=== PATIENT | male | born 1995 | race Asian ===

== ENCOUNTER 2018-06-09 19:33 | Emergency (ER) | payer OTHER, SELFPAY ==
[2018-06-09 19:37] VITALS: BP 124/82; PULSE 72; RESP 18; TEMP 36.4; O2SAT 99; BMI 20.6
--- NOTE | 2018-06-09 22:33 | ED.DCSUM_ITS ---
- ER Visit Summary Date of Service: 06/09/18 Chief Complaint: Anxiety and panic attacks History of Present Illness: The patient is a 23 M who presents due to increasing frequency of panic attacks. He has a history of major depressive disorder and posttraumatic stress disorder. He states he had a stressful event a couple of weeks ago and that I am in a crisis right now. He states that when the event initially occurred he has some suicidal thoughts but he has seen the wellness center about this had no specific plan and denies feeling suicidal now. He does not feel he is a risk to himself. He has no homicidal or violent thoughts directed at anyone else. He is on an SSRI and the dosage was recently increased. He complains of feeling anxious and fearful that he is going to have a panic attack and frustrated by this. He complains of nausea and decreased oral intake related to his anxiety. Otherwise no recent illness such as fevers vomiting chest pain shortness of breath. Physical Examination: Afebrile vitals are normal Moist mucous membranes Patient does appear anxious Heart regular rate and rhythm Lungs clear Abdomen soft Alert Test Results: Not indicated Emergency Department Course and Treatment: I advised that the patient follow-up with the counseling center. He already sees a counselor frequently once or twice a week. He is not suicidal or homicidal. He does show insight into his condition and is able to care for himself and does see a counselor. I do not feel he meets criteria for involuntary psychiatric hospitalization. He was given a prescription for Vistaril. Patient was discharged. Treatment Plan: [] Disposition: Discharge Impression: Panic attacks This note was generated with [employer] dictation software. It may contain incorrect words, spelling, and punctuation that were not noted in review of the chart prior to signing ED Disposition - Plan for ED Patient: Chief Complaint: Mental Health Referrals: Care Physician,No Primary [Primary Care Provider] -
--- NOTE | 2018-06-09 22:33 | ED.DEP ---
ED Disposition - Plan for ED Patient: Chief Complaint: Mental Health Instructions: ED Panic Attack Prescriptions: Ondansetron [Zofran Odt] 4 mg PO Q8H PRN PRN #10 tab PRN Reason: Nausea hydrOXYzine pamoate capsule [Vistaril] 50 mg PO TID PRN PRN #30 cap PRN Reason: Anxiety Referrals: Care Physician,No Primary [Primary Care Provider] -
[2018-06-09] MEDS: hydrOXYzine PAM 25 MG Capsule PO (22:38)
[2018-06-09 22:42] VITALS: RESP 18
== END 2018-06-09 22:42 | disposition home or self-care (01) ==
PROVIDERS: Emergency Provider Emergency Medicine
DX: F41.0 Panic disorder [episodic paroxysmal anxiety] (principal); F32.9 Major depressive disorder, single episode, unspecified; F43.10 Post-traumatic stress disorder, unspecified; Z79.899 Other long term (current) drug therapy; Z72.0 Tobacco use
CPT/HCPCS: 99283

== ENCOUNTER 2018-10-13 02:24 | Inpatient (IN) | payer OTHER, SELFPAY ==
[2018-10-13] VITALS (39 sets, daily range): BP systolic 97–152; BP diastolic 39–96; PULSE 49–102; RESP 12–18; TEMP 36.2–38.3; O2SAT 56–771; BMI 19.2; BMI 19.3
[2018-10-13 02:50] LABS: Absolute Lymphocyte Count 1.82 X10^3/ul (0.83-4.51); Absolute Neutrophil Count 6.2 X10^3/uL (2.0-7.7); Basophil# 0.02 X10^3/uL; Basophil% 0.2 % (0-1); Eosinophil# 0.07 X10^3/uL; Eosinophils% 0.8 % (0-5); Hematocrit 43.7 % (40-54); Hemoglobin 15.3 g/dl (13.0-16.5); Lymphocyte # 1.82 X10^3/ul (4.0); Lymphocyte % 21.2 % (19-41); Mean Corpuscular Hgb 31.4 pg (27.0-32.0); Mean Corpuscular Volume 89.7 fL (80-94); Mean Platelet Vol. 10.4 fl (6.2-12.0); Monocyte# 0.47 X10^3/uL; Monocyte% 5.5 % (0-10); Neutrophil # 6.18 X10^3/uL (2.7-7.7); Neutrophil % 72.1 % (47-70); Platelet Count 301 K/mm3 (150-450); RBC Distribution Width CV 12.1 % (11.6-14.6); RBC Distribution Width SD 39.3 fl (35.1-43.9); Red Blood Count 4.87 M/mm3 (4.6-6.2); White Blood Count 8.6 K/mm3 (4.4-11.0)
[2018-10-13] MEDS: Etomidate 20 MG/10 ML Vial IV (02:50)
[2018-10-13 02:51] LABS: POSITIVE COUNT NO; POSITIVE DIFFERENTIAL NO; POSITIVE MORPHOLOGY NO
[2018-10-13] MEDS: Succinylcholine Chloride 200 MG/10 ML Vial 100 MG IV (02:51)
--- NOTE | 2018-10-13 02:56 | ED.VISSUMM ---
- ER Visit Summary Date of Service: 10/13/18 Chief Complaint: Reportedly attempted suicide by overdose and carbon monoxide poisoning History of Present Illness: The patient is a 23 M we have no significant past medical or surgical history. The patient is completely unresponsive and is unable to give me any history. Per the paramedics and police reportedly was suicidal and overdosed on 3 packages of Benadryl I am unsure the amount or the strength. Also was found unresponsive in a car with exhaust coming from the tailpipe and a tube running the exhaust into the car. Reportedly was only in the car 15 minutes or so. Patient is unable to give me any history. There is no family available for history. 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 Physical Examination: Unresponsive young male. Initial vital signs 137/96 pulse ox 100%. He only moans. He has no purposeful movement except to noxious stimuli he tries to withdrawal. He does not follow any commands. He is currently not speaking. His eyes are closed. HEENT exam eyes closed. When open his pupils are about 3 mm. Moist mucous membranes. No signs of trauma to his face or head. Neck nontender. Trachea midline. No signs of ligature. Lungs clear to auscultation bilaterally. Heart regular rhythm rate about 95 no murmur. Chest wall nontender. No signs of trauma. Abdomen soft and nontender. Extremities are unremarkable. He is shivering. Neurologically his eyes are closed. He is moaning minimally. And tries to withdraw from noxious stimuli. No other movements. Does not follow commands. Test Results: Portable chest x-ray shows normal cardiac silhouette intubated. It was in the proximal trachea and was advanced 2 cm. CBC showed a white count 8. Hemoglobin 15. Chemistries normal with a gap of 7 and creatinine of 1.9. Liver enzymes are normal. Tox screen negative. Alcohol pending. Salicylates are less than 1.7. Tylenol is less than 2. Carbon monoxide level was 3.0 which would be a limited exposure. Emergency Department Course and Treatment: Patient with very decreased mental status after overdose and carbon monoxide exposure. He was emergently intubated. The entire time his sats stayed in the high 95 % or better. 7-1/2 ET tube at 22-1/2 at the lips. Bilateral breath sounds were heard. Good color change. Treatment Plan: Treated with IV fluids. He will be admitted to the ICU. I have the hospitalist on page. I did speak to a member of the college staff who was in the patient's room. She states they have been working with him recently due to depression. He is from a local high school and has a sponsor family here but his biological family lives in [place] and does not speak Austrian. They are working to get a hold of them. Disposition: Admission Impression: Acute suicide attempt by Benadryl overdose and carbon monoxide exposure Depression ET intubation Critical care time 35 minutes This note was generated with [employer] software. It may contain incorrect words, spelling, and punctuation that were not noted in review of the chart prior to signing ED Disposition - Plan for ED Patient: Referrals: NOT,DEFINED [NON-STAFF] -
[2018-10-13] MEDS: Propofol 10MG/Ml 1,000 MG/100 ML Bottle 3.702 MG CONT INF ×3 (03:00→10:53)
--- NOTE | 2018-10-13 03:08 | PCM.PN.BLA ---
Progress Note Indication: Impending respiratory failure Performed by: Dr. Hay Ng The patient was on mask with oxygen saturation 100%. RSI was done using Etomidate 20 mg. Glidescope was attempted. However patient had rigidity of jaw for which reason succinylcholine 100 mg was administered. Patient continued to have rigid jaw and intubation was difficult. Additional succinylcholine 100 mg was given at different IV site after which patient's jaw was more relaxed. Glidescope was reinserted into the oropharynx.. There was a Grade 1 view of the vocal cords. A 7.5-armenian endotracheal tube was inserted and visualized going through the vocal cords. The stylette was removed and cuff was inflated. Colorimetric change was visualized on the CO2 detector. Breath sounds were heard equally in both lung minaya. The endotracheal tube was placed at 21.5 cm, measured at the lips. A STAT chest x-ray was ordered to verify endotracheal tube placement. The patient tolerated the procedure well and there were no immediate complications. Because chest x-ray showed the endotracheal tube at T1-T2 disc and radiologist recommended advancing the tube by 4 cm emergency department doctor reportedly advanced the tube appropriately. Code Visit Procedures: 52174 Insert Emergency Airway
[2018-10-13] MEDS: 0.9% Normal Saline 1,000 ML 999 ML IV (03:11)
[2018-10-13 03:12] LABS: ALB/GLOB Ratio 1.2 RATIO (0.9-2.4); AST(SGOT) 16 U/L (15-37); Alanine Aminotransfer ALT/SGPT 14 U/L (16-61); Albumin, Serum 4.7 g/dL (3.2-5.0); Alkaline Phosphatase 83 U/L (45-117); Anion Gap 7 (5-15); BUN 6 mg/dL (7-18); BUN/Creat Ratio 6.4 RATIO (10-20); Calcium,Total 8.9 mg/dL (8.5-10.1); Chloride 103 mmol/L (98-107); Creatinine, Serum 0.94 mg/dL (0.70-1.30); EST Glomerular Filtration Rate 107 mL/min (>60); Est Glom Filt Rate - Afr Amer 129 mL/min (>60); Estimated Creatinine Clearance 108.49 ml/min; Globulin 3.8 g/dL (2.2-4.2); Glucose 133 mg/dL (74-106); Potassium 3.6 mmol/L (3.5-5.1); Protein, Total 8.5 g/dL (6.4-8.2); Sodium Level 138 mmol/L (136-145)
--- NOTE | 2018-10-13 03:21 | RAD_ITS ---
HISTORY: et tube placement and og placement EXAM/TECHNIQUE: XR Chest 1 View: COMPARISON: None. FINDINGS: # of images incl. paperwork: 1 Endotracheal tube tip at the level of the T1-2 disc, suggest advancing 4 cm and reimaging. Enteric tube extends into the stomach and off the film. No evidence of pneumothorax, pleural effusion, pneumonia, or pulmonary edema. RAD/Chest 1 View (Portable) IMPRESSION: Endotracheal tube tip at the level of the T1-2 disc, suggest advancing 4 cm and reimaging. at 0402 Reported and signed by: Reno García MD Electronically Signed: Reno García, at 4:00 EDT Tel , Service support ,
[2018-10-13] MEDS: LORazepam 2 MG/ML Syringe IV ×2 (03:30→04:50)
[2018-10-13 03:36] LABS: Salicylate < 1.7 mg/dL (2.8-20.0)
[2018-10-13 03:50] LABS: Acetaminophen (Tylenol) Level < 2.0 ug/mL (10.0-30.0)
[2018-10-13 03:54] LABS: Amphetamine Urine VISTA NEGATIVE (<1000 ng/mL); Barbiturate Urine VISTA NEGATIVE (< 200 ng/mL); Benzodiazepine Urine VISTA NEGATIVE (< 200 ng/mL); Cocaine Urine VISTA NEGATIVE (< 300 ng/mL); Ecstacy Urine VISTA NEGATIVE (< 500 ng/mL); Methadone Urine VISTA NEGATIVE (< 300 ng/mL); PCP Urine VISTA NEGATIVE (< 25 ng/mL); THC Urine VISTA NEGATIVE (< 50 ng/mL); Vista UDS pH Range 7
--- NOTE | 2018-10-13 05:11 | NURSING ---
[facility] [phone] CHLOE MAR
--- NOTE | 2018-10-13 05:18 | EKG12_ITS ---
Test Reason : OVERDOSE Blood Pressure : / mmHG Vent. Rate : 070 BPM Atrial Rate : 070 BPM P-R Int : 140 ms QRS Dur : 098 ms QT Int : 392 ms P-R-T Axes : 064 085 055 degrees QTc Int : 423 ms Normal sinus rhythm with sinus arrhythmia Normal ECG Confirmed by MANOHAR FAN, JULIANNA ([id number]), newspaper copy editor BENNY BASURTO ([id number]) on 10/15/2018 1:12:18 PM Referred By: FAUSTO Confirmed By:JULIANNA VILLELA MD
--- NOTE | 2018-10-13 05:53 | HP.PCM_ITS ---
Problem List (1) Depression Status: Chronic History of Present Illness Date of Admission: 10/13/18 Chief Complaint: suicidal attempt Patient was taken from emergency department doctor and a tennille at [facility] since patient is obtunded and could not provide history. 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 Patient took multiple boxes of Benadryl and connected tube from the exhaust of a running vehicle into the inside of the medical in an attempt to poison himself by carbon monoxide. At the emergency department because of impending respiratory failure and low [place] Coma Score patient was intubated. Subsequently he was started on pr opofol drip. His carbon monoxide on VBG was 3. Past Medical History Past Medical History (Chronic Problems): Chronic Problems (Last Updated 10/13/18 @ 06:25 by Hay Ng MD) Depression (Chronic) Medical History: Medical History (Last Updated 10/13/18 @ 06:25 by Hay Ng MD) Depression F32.9 Allergies No Known Allergies Allergy (Verified 10/13/18 02:37) Home Medications: Ambulatory Orders Medication Instructions Recorded Citalopram [Celexa] 20 mg PO DAILY 10/13/18 hydrOXYzine pamoate capsule 1 - 2 tab PO Q6H PRN PRN 10/13/18 [Vistaril pamoate capsule] Surgical History: - - Unable to obtain since patient was obtunded Smoking Status: Unknown if ever smoked Tobacco Use: - - Unable to obtain since patient is obtunded - *Family History Maternal History Items: - - Unable to obtain since patient is obtunded Paternal History Items: - - Unable to obtain since patient is obtunded Review of Systems Unable to obtain accurate/complete ROS d/t: Patient is obtunded VTE Information - Inpt Only VTE Present on Admission: No VTE Mechan Device Prophylaxis: None VTE Pharm Prophylaxis ordered?: Yes - Physical Exam General: - - Obtunded HEENT: Atraumatic, Normocephalic Neck: Supple, No JVD, Negative Carotid Bruits Lungs: Clear to auscultation, Normal air movement Cardiovascular: Regular rate, No murmurs Abdomen: Bowel Sounds Present, Soft, Non Tender Extremities: No edema, Capillary Refill Less than 3 Seconds Skin: No rashes, No breakdown Musculoskeletal: No Muscle Wasting Neurological: - - Obtunded. Patient noted to be shivering at the emergency department. Psych/Mental Status: - - Obtunded Vital Signs Temp Pulse Resp BP Pulse Ox 98.0 F 67 14 135/91 H 99 10/13/18 02:25 10/13/18 05:29 10/13/18 05:29 10/13/18 05:29 10/13/18 05:29 Oxygen Flow Rate (L/min) 15 Oxygen Delivery Method Mechanical Ventilator Weight: 61.7 kg Body Mass Index (BMI) 20.0 Laboratory Tests Past 24 Hrs 10/13/18 10/13/18 10/13/18 02:32 02:32 02:32 WBC 8.6 RBC 4.87 Hgb 15.3 Hct 43.7 MCV 89.7 MCH 31.4 MCHC 35.0 RDW 12.1 RDW Differential 39.3 Plt Count 301 MPV 10.4 Immature Gran % (Auto) 0.200 Neut % (Auto) 72.1 H Lymph % (Auto) 21.2 Winn % (Auto) 5.5 Eos % (Auto) 0.8 Baso % (Auto) 0.2 Absolute Neuts (auto) 6.2 Absolute Lymphs (auto) 1.82 Total Counted Not Reportable VBG Carboxyhemoglobin Sodium 138 Potassium 3.6 Chloride 103 Carbon Dioxide 28.0 Anion Gap 7 BUN 6 L Creatinine 0.94 Estim Creat Clear Calc 108.49 Est GFR (MDRD) Af Amer 129 Est GFR (MDRD) Non-Af 107 BUN/Creatinine Ratio 6.4 L Glucose 133 H Calcium 8.9 Total Bilirubin 1.10 H AST 16 ALT 14 L Alkaline Phosphatase 83 Total Protein 8.5 H Albumin 4.7 Globulin 3.8 Albumin/Globulin Ratio 1.2 Salicylates Urine Opiates Screen Urine Methadone Screen Acetaminophen < 2.0 L Ur Barbiturates Screen Ur Phencyclidine Scrn Ur Amphetamines Screen U Methamphetamin-MDMA U Benzodiazepines Scrn Urine Cocaine Screen U Cannabinoids Screen Ur Drug Screen Comment 10/13/18 10/13/18 10/13/18 02:32 03:33 04:45 WBC RBC Hgb Hct MCV MCH MCHC RDW RDW Differential Plt Count MPV Immature Gran % (Auto) Neut % (Auto) Lymph % (Auto) Winn % (Auto) Eos % (Auto) Baso % (Auto) Absolute Neuts (auto) Absolute Lymphs (auto) Total Counted VBG Carboxyhemoglobin 3.0 H Sodium Potassium Chloride Carbon Dioxide Anion Gap BUN Creatinine Estim Creat Clear Calc Est GFR (MDRD) Af Amer Est GFR (MDRD) Non-Af BUN/Creatinine Ratio Glucose Calcium Total Bilirubin AST ALT Alkaline Phosphatase Total Protein Albumin Globulin Albumin/Globulin Ratio Salicylates < 1.7 L Urine Opiates Screen NEGATIVE Urine Methadone Screen NEGATIVE Acetaminophen Ur Barbiturates Screen NEGATIVE Ur Phencyclidine Scrn NEGATIVE Ur Amphetamines Screen NEGATIVE U Methamphetamin-MDMA NEGATIVE U Benzodiazepines Scrn NEGATIVE Urine Cocaine Screen NEGATIVE U Cannabinoids Screen NEGATIVE Ur Drug Screen Comment Assessment/Plan The patient is a 23 year old M with a significant history of depression and who sees psychiatry and psychologist in the community; and originally 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 Acute toxic metabolic encephalopathy Likely his history of depression pushed him into the suicidal attempts. Likely from Benadryl as his CO level is only mildly elevated at 3.0. Salicylate level is unremarkable; acetaminophen level is unremarkable; urine dr ug screen is unremarkable. Patient was emergently intubated because of low [place] Coma Score. We will check ABG to adjust vent settings if necessary. Was started on propofol drip; continue. OG tube was placed in the emergency department. Trench Pipe Layer consult. Consider notifying patient's psychologist and psychiatrist when patient is medically stable. Maintenance IV infusion with lactated Ringer's. Hydration with water by OG tube. Trend CBC and BMP Trend CPK and a triglyceride in the setting of propofol use. PT and OT to work with patient while intubated. Depression Citalopram on hold since patient is intubated. Probable anxiety disorder Home medications include Vistaril. Vistaril on hold since patient is intubated and sedated. Stress ulcer prophylaxis Pepcid by GT DVT prophylaxis Subcutaneous Lovenox Code Visit Inpatient E&M: 31187 Init Hosp L3
--- NOTE | 2018-10-13 06:49 | NURSING ---
ICU 1 DR CLEMONS ACUTE TOXIC ENCEPHALOPATHY
--- NOTE | 2018-10-13 06:58 | RAD_ITS ---
HISTORY: confirm og placement. hx OD EXAM/TECHNIQUE: XR Abdomen 1 View: COMPARISON: None. FINDINGS: # of images incl. paperwork: 1 Enteric tube tip in the mid stomach directed inferiorly in the left upper abdomen. No apparent free air or obstruction. RAD/Abdomen Single View (Portable) IMPRESSION: Enteric tube tip in the mid stomach. at 0030 Reported and signed by: Reno García MD Electronically Signed: Reno García, at 0:28 EDT Tel , Service support ,
--- NOTE | 2018-10-13 07:10 | PCM.CON.CC ---
Capacity - Capacity Assessment Tool Can the patient make a choice & communicate that choice?: No Can the patient understand benefits, risks and alternatives?: No Can the patient make a logical, rational choice?: No Is there an impending, emergent risk to the patient?: Yes Does the patient have an Advance Directive?: No Is there a Surrogate Available?: No Reason for Consult Date of Consultation: 10/13/18 Reason for Consultation: Acute respiratory failure History of Present Illness: The patient is a 23-year-old male, with a history as outlined below, who presented to the emergency department on October 13 in an unresponsive state, following a reported suicide attempt. History pertinent to the patient's hospitalization was obtained primarily via chart review, as the patient is currently intubated and there is no family available at the bedside. The patient is currently residing with a local sponsor family while he attends school at the [employer], as he is normally a resident of [place] and does not speak any Indonesian. The patient reportedly took an unknown number of Benadryl tablets and then placed a tube connecting the exhaust of his vehicle to the interior portion of the automobile. Per documentation, the patient was only in the automobile with the exhaust fumes for approximately 15 minutes or so. On presentation to the emergency department, the patient was noted to be afebrile and hemodynamically stable. Initial laboratory evaluation revealed no evidence of a leukocytosis. Carboxyhemoglobin was noted to be 3.0. Chemistry profile was largely unremarkable. Toxicology screen was negative. On arrival to the ED, the patient was emergently intubated, as he was noted to be nonresponsive. The patient's initial carboxyhemoglobin level was noted only to be 3%. The patient was subsequently transferred to the medical intensive care unit for ongoing management. Past Medical History Past Medical History (Chronic Problems): Chronic Problems (Last Updated 10/13/18 @ 06:25 by Hay Ng MD) Depression (Chronic) Medical History: Medical History (Last Updated 10/13/18 @ 06:25 by Hay Ng MD) Depression F32.9 Allergies No Known Allergies Allergy (Verified 10/13/18 02:37) Home Medications: Ambulatory Orders Medication Instructions Recorded Citalopram [Celexa] 20 mg PO DAILY 10/13/18 hydrOXYzine pamoate capsule 1 - 2 tab PO Q6H PRN PRN 10/13/18 [Vistaril pamoate capsule] Surgical History: - - Unable to obtain since patient was obtunded Smoking Status: Unknown if ever smoked Tobacco Use: - - Unable to obtain since patient is obtunded - *Family History Maternal History Items: - - Unable to obtain since patient is obtunded Paternal History Items: - - Unable to obtain since patient is obtunded Review of Systems Unable to obtain accurate/complete ROS d/t: Due to current intubation and mechanical ventilation status. Objective: The patient's most recent lab work, culture data and imaging studies have all been personally reviewed. - Physical Exam General: - - Intubated, sedated and mechanically ventilated. No ventilator dyssynchrony noted. HEENT: Atraumatic, PERRLA, Normocephalic Oral: Moist Mucosa, No Gingival or Mucosal Lesions/ Ulcerations, - - Endotracheal and OG tubes currently in place. Neck: Supple, No Nodes, Trachea Midline Lungs: Normal air movement, No rhonchi, No wheeze, No rales Cardiovascular: Normal S1, Normal S2, No murmurs, Bradycardic Abdomen: Bowel Sounds Present, Soft, Non Tender, Non-Distended Extremities: No clubbing, No cyanosis, No edema, Capillary Refill Less than 3 Seconds Skin: No rashes, No breakdown Musculoskeletal: No Tenderness to Palpation of Joints or Extremities Lymphatic: No Cervical, Supraclavicular, or Inguinal Adenopathy Neurological: - - No focal neurological deficits. Vital Signs Temp Pulse Resp BP Pulse Ox 36.9 C 59 L 13 144/70 H 100 10/13/18 06:51 10/13/18 06:59 10/13/18 06:59 10/13/18 06:51 10/13/18 06:59 Oxygen Flow Rate (L/min) 15 Oxygen Delivery Method Mechanical Ventilator Weight: 130 lb 1.164 oz Body Mass Index (BMI) 19.2 Laboratory Tests Past 24 Hrs 10/13/18 10/13/18 10/13/18 02:32 02:32 02:32 WBC 8.6 RBC 4.87 Hgb 15.3 Hct 43.7 MCV 89.7 MCH 31.4 MCHC 35.0 RDW 12.1 RDW Differential 39.3 Plt Count 301 MPV 10.4 Immature Gran % (Auto) 0.200 Neut % (Auto) 72.1 H Lymph % (Auto) 21.2 Moffat % (Auto) 5.5 Eos % (Auto) 0.8 Baso % (Auto) 0.2 Absolute Neuts (auto) 6.2 Absolute Lymphs (auto) 1.82 Total Counted Not Reportable VBG Carboxyhemoglobin Sodium 138 Potassium 3.6 Chloride 103 Carbon Dioxide 28.0 Anion Gap 7 BUN 6 L Creatinine 0.94 Estim Creat Clear Calc 108.49 Est GFR (MDRD) Af Amer 129 Est GFR (MDRD) Non-Af 107 BUN/Creatinine Ratio 6.4 L Glucose 133 H Calcium 8.9 Total Bilirubin 1.10 H AST 16 ALT 14 L Alkaline Phosphatase 83 Total Protein 8.5 H Albumin 4.7 Globulin 3.8 Albumin/Globulin Ratio 1.2 Salicylates Urine Opiates Screen Urine Methadone Screen Acetaminophen < 2.0 L Ur Barbiturates Screen Ur Phencyclidine Scrn Ur Amphetamines Screen U Methamphetamin-MDMA U Benzodiazepines Scrn Urine Cocaine Screen U Cannabinoids Screen Ur Drug Screen Comment 10/13/18 10/13/18 10/13/18 02:32 03:33 04:45 WBC RBC Hgb Hct MCV MCH MCHC RDW RDW Differential Plt Count MPV Immature Gran % (Auto) Neut % (Auto) Lymph % (Auto) Moffat % (Auto) Eos % (Auto) Baso % (Auto) Absolute Neuts (auto) Absolute Lymphs (auto) Total Counted VBG Carboxyhemoglobin 3.0 H Sodium Potassium Chloride Carbon Dioxide Anion Gap BUN Creatinine Estim Creat Clear Calc Est GFR (MDRD) Af Amer Est GFR (MDRD) Non-Af BUN/Creatinine Ratio Glucose Calcium Total Bilirubin AST ALT Alkaline Phosphatase Total Protein Albumin Globulin Albumin/Globulin Ratio Salicylates < 1.7 L Urine Opiates Screen NEGATIVE Urine Methadone Screen NEGATIVE Acetaminophen Ur Barbiturates Screen NEGATIVE Ur Phencyclidine Scrn NEGATIVE Ur Amphetamines Screen NEGATIVE U Methamphetamin-MDMA NEGATIVE U Benzodiazepines Scrn NEGATIVE Urine Cocaine Screen NEGATIVE U Cannabinoids Screen NEGATIVE Ur Drug Screen Comment Clinical Impression(s) from Imaging Studies Chest X-Ray 10/13/18 03:21 IMPRESSION: Endotracheal tube tip at the level of the T1-2 disc, suggest advancing 4 cm and reimaging. at 0401 Reported and signed by: Reno García MD Electronically Signed: Reno García, at 4:00 EDT Tel , Service support , Assessment/Plan RECOMMENDATIONS: 1. Stop supplemental IV fluids and start tube feeds today, per nutrition recommendations. 2. Continue Lovenox and Pepcid for prophylaxis. 3. Obtain repeat plain film chest x-ray to ensure appropriate placement of endotracheal tube. 4. Obtain arterial blood gas. 5. Continue propofol for sedation. 6. Plan for daily paired spontaneous awakening and breathing trials. IMPRESSIONS: 1. Acute hypoxemic respiratory failure The patient was intubated emergently upon arrival to the ED due to his obtunded state. The etiology for his respiratory status is likely secondary to polypharmacy in the setting of an intentional overdose. The patient will be maintained on invasive mechanical ventilatory support, pending improvement in his overall mentation. Chest imaging does not reveal an acute cardiopulmonary process. No antibiotics are indicated at this time. FiO2 will be weaned to maintain an oxygen saturation at or above 90%. We will continue propofol for sedation with a goal to maintain a RASS of -1 to 1. Tube feeds can be initiated today from my perspective. 2. Encephalopathy Secondary to polypharmacy in the setting of an intentional Benadryl overdose. The patient's carboxyhemoglobin level was not elevated to the point that significant CO poisoning would be suspected. The patient's FiO2 can be weaned accordingly. Anticipate improvement in the patient's mentation with time. 3. Intentional overdose/suicide attempt Complicates care, management, recovery and prognosis. The patient currently has a pink slip in place. He will require evaluation by behavioral health, once medically stabilized. TIME: 40 minutes of critical care time, independent of procedures, was spent addressing the patient's acute respiratory failure, encephalopathy, intentional overdose/suicide attempt, review of all data and collaboration with the care team. ([id number]) Code Visit 9xxxx: 77841 Critical care first hour
[2018-10-13] MEDS: Lactated Ringers 1,000 ML 75 ML IV (07:26)
--- NOTE | 2018-10-13 07:31 | PCM.PN.BLA ---
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 Patient was intubated in the emergency department and admitted to the intensive care unit for subsequent management Patient seen currently remains sedated on the vent Assessment 1. Acute hypoxic respiratory failure from severe toxic metabolic encephalopathy patient was intubated in the ED admitted to the intensive care unit with consultation placed to the digital content coordinator 2. Acute toxic metabolic encephalopathy from an apparent suicidal attempt from Benadryl overdose and suspected attempted carbon monoxide poisoning (His CO level is only mildly elevated at 3.0.) 3. Severe depression with suicidal attempt 4. Anxiety disorder 5. DVT prophylaxis SC Lovenox
[2018-10-13 07:48] LABS: Carboxyhemoglobin Frac (CO) 1.1 % (0.0-1.5)
[2018-10-13 08:36] LABS: Base Excess -1 mmol/L (-2 to +2); Bicarbonate 23.7 mmol/L (22-26); Blood Gas Specimen Type ART; FI02 50; Mode A-C; O2 Delivery Device Vent; PEEP 5; PO2 268 mmHG (75-100); RR 12; SITE R Brachial; SO2 100 % (95-99); Time Given 825; Total Carbon Dioxide 25 mmol/L; Vt 400; pCO2 39.4 mmHg (35-45); pH 7.39 (7.35-7.45)
--- NOTE | 2018-10-13 09:40 | RAD_ITS ---
STUDY: X-RAY CHEST REASON FOR EXAM: Male, 23 years old. Overdose. TECHNIQUE: Single AP portable view of the chest. COMPARISON: Comparison is made with prior study dated October 13, 2018. FINDINGS: An endotracheal tube is in situ. The tip is at 7.4 cm proximal to the danny. An orogastric tube is seen with the tip below the left hemidiaphragm. EKG electrodes are seen. The lungs are clear and expanded. There is no demonstrated pleural abnormality. Normal size heart. Normal mediastinum and ning. Normal visualized pulmonary arteries. Normal visualized aortic arch and descending thoracic aorta. Normal visualized thoracic spine. Normal visualized ribs, clavicles, and shoulders. There is no demonstrated abnormality of the visualized soft tissue structures of the upper abdomen. RAD/Chest 1 View (Portable) IMPRESSION: Stable examination. Electronically Signed: Raulito Elaine, at 10:25 EDT , Service support ,
[2018-10-13] MEDS: Chlorhexidine 15 ML PO ×2 (10:53→21:28)
[2018-10-13] MEDS: Enoxaparin 40 MG/0.4 ML Syringe SC (10:59)
[2018-10-13] MEDS: Famotidine 20 MG Tablet GT (11:00)
--- NOTE | 2018-10-13 13:29 | CASEMGMT ---
Social Work: Attended interdisciplinary rounds. Patient was admitted early this morning with an intentional overdose and carbon monoxide exposure from a tube from the exhaust into the car. Patient was found by another [employer] student. Patient is currently intubated and sedated and is unable to interact with others at this time. Spoke with [facility] international account representative, Naina Mckeon (Director of International Student Studies). Naina states that patient's family lives out of the [place] but that the [facility] attempting to get a hold of them. Will continue to follow and will call Crisis with referral once patient is medically stable. DAVID Connell
--- NOTE | 2018-10-13 15:24 | CHAPLAIN ---
Type of Pastoral Visit _x__ Initial Visit ___ Follow-up Visit ___ On-call Visit ___ General Patient Visit ___ Spiritual Assessment ___ Family Conference ___ Bereavement ___ Rapid Response ___ Code Blue ___ Other (describe below) Pastoral Care Referral From ___ Patient _x__ Family _x__ Nurse ___ Physician ___ Airdox Fitter ___ Coal Gasification Technician ___ Other (describe below) Sacrament/Intervention _x__ Active listening ___ Anointing ___ Lutheran ___ Bereavement ___ Communion _x__ Ale exploration ___ ___ Life review _x__ Prayer ___ Reconciliation ___ Sacrament of Sick _x__ Supportive presence ___ Wedding ___ Other (describe below) Pastoral Comments the patient is sedated and intubated but did open his eyes and make movements during visit of this insulation mechanic; present in the room and actively talking to pt is his [place] host parent of past five years; host parent has made initial request for spiritual support; host parent states that pt has had Shinto ale exposure during his high school years at [employer] and states that his father is a Methodist; Otherwise host parent is unsure of personal ale and yarsanism preference of the patient; this insulation mechanic does offer a silent prayer and an audible prayer for patient; this insulation mechanic stays at bedside and offers calming words to patient as he makes movements in bed and resists the tube in throat; RN is actively available to calm and medicate pt as needed
[2018-10-13] MEDS: Vital AF 1.2 Cal Liquid 1,000 ML 25 ML GT (15:48)
[2018-10-13] MEDS: Propofol 10MG/Ml 1,000 MG/100 ML Bottle 17.7 MG CONT INF ×3 (18:38→22:47)
[2018-10-14] VITALS (27 sets, daily range): BP systolic 100–147; BP diastolic 55–98; PULSE 63–104; RESP 10–23; TEMP 36.7–38.6; O2SAT 96–100
[2018-10-14] MEDS: Acetaminophen 650 MG/20 ML UDC GT (02:16)
[2018-10-14 04:54] LABS: Hematocrit 38.4 % (40-54); Hemoglobin 13.1 g/dl (13.0-16.5); Mean Corp Hgb Conc 34.1 g/gl (32-36); Mean Corpuscular Hgb 31.1 pg (27.0-32.0); Mean Corpuscular Volume 91.2 fL (80-94); Platelet Count 234 K/mm3 (150-450); RBC Distribution Width CV 12.3 % (11.6-14.6); RBC Distribution Width SD 40.2 fl (35.1-43.9); Red Blood Count 4.21 M/mm3 (4.6-6.2); Scan Indicated on CBC? Y/N NO; White Blood Count 9.6 K/mm3 (4.4-11.0)
[2018-10-14 05:48] LABS: Anion Gap 5 (5-15); BUN 8 mg/dL (7-18); BUN/Creat Ratio 8.6 RATIO (10-20); CPK Total, Creatine Kinase 472 U/L (39-308); Calcium,Total 8.4 mg/dL (8.5-10.1); Chloride 108 mmol/L (98-107); Creatinine, Serum 0.93 mg/dL (0.70-1.30); EST Glomerular Filtration Rate 108 mL/min (>60); Est Glom Filt Rate - Afr Amer 131 mL/min (>60); Estimated Creatinine Clearance 102.72 ml/min; Glucose 108 mg/dL (74-106); Potassium 2.9 mmol/L (3.5-5.1); Sodium Level 141 mmol/L (136-145); Triglycerides 113 mg/dL
--- NOTE | 2018-10-14 06:30 | NURSING ---
at bedside,ok to extubate order received;RT at bedside,pt successfully extubated to [facility].Pt is tolerating well.
--- NOTE | 2018-10-14 06:30 | PN_ITS ---
Subjective: The patient was seen and examined at the bedside this morning. Events from the last 24 hours have been reviewed. Overnight, the patient did spike a fever with a T-max of 38.6 ?C. He has, nevertheless, remained hemodynamically stable. The patient is currently on his spontaneous breathing trial and is doing well. He is alert and appropriately interactive. Potassium was low this morning at 2.9. Objective: The patient's most recent lab work, culture data and imaging studies have all been personally reviewed. Blood and urine cultures are currently pending. General: - - Remains intubated and mechanically ventilated. Currently tolerating spontaneous mode of mechanical ventilation. HEENT: Atraumatic, PERRLA, Normocephalic Oral: No Gingival or Mucosal Lesions/ Ulcerations, - - Endotracheal and OG tubes currently in place. Neck: Supple, No Nodes, Trachea Midline Lungs: Normal air movement, No rhonchi, No wheeze, No rales Cardiovascular: Regular rate, Regular Rhythm, Normal S1, Normal S2, No murmurs Abdomen: Bowel Sounds Present, Soft, Non Tender, Non-Distended Extremities: No clubbing, No cyanosis, No edema Skin: No rashes, No breakdown Musculoskeletal: No Muscle Wasting Lymphatic: No Cervical, Supraclavicular, or Inguinal Adenopathy Neurological: - - No focal neurological deficits. Currently awake, following commands and appropriately interactive. Vital Signs Temp Pulse Resp BP Pulse Ox 38.0 C H 75 10 L 137/98 H 100 10/14/18 06:00 10/14/18 06:00 10/14/18 06:00 10/14/18 06:00 10/14/18 06:00 Oxygen Flow Rate (L/min) 2 Oxygen Delivery Method Mechanical Ventilator Weight: 127 lb 6.835 oz Body Mass Index (BMI) 19.2 Intake and Output for Last 24 Hours 10/12/18 10/13/18 10/14/18 23:59 23:59 23:59 Intake Total 1474 / 1474 490 / 490 Output Total 2100 / 2100 300 / 300 Balance -626 / -626 190 / 190 Labs (Last 48 Hours) 10/13/18 10/13/18 10/13/18 02:32 02:32 02:32 WBC 8.6 RBC 4.87 Hgb 15.3 Hct 43.7 MCV 89.7 MCH 31.4 MCHC 35.0 RDW 12.1 RDW Differential 39.3 Plt Count 301 MPV 10.4 Immature Gran % (Auto) 0.200 Neut % (Auto) 72.1 H Lymph % (Auto) 21.2 Tillman % (Auto) 5.5 Eos % (Auto) 0.8 Baso % (Auto) 0.2 Absolute Neuts (auto) 6.2 Absolute Lymphs (auto) 1.82 Total Counted Not Reportable Specimen Type Sample Site pH Bicarbonate Actual POC Total CO2 Base Excess O2 Saturation O2 % ABG pCO2 ABG pO2 Km Test VBG Carboxyhemoglobin Respiration Rate O2 Delivery Device Minute Volume Vent Mode Tidal Volume POC PEEP Blood Gas Notified Whom Blood Gas Notified Time Sodium 138 Potassium 3.6 Chloride 103 Carbon Dioxide 28.0 Anion Gap 7 BUN 6 L Creatinine 0.94 Estim Creat Clear Calc 108.49 Est GFR (MDRD) Af Amer 129 Est GFR (MDRD) Non-Af 107 BUN/Creatinine Ratio 6.4 L Glucose 133 H Calcium 8.9 Total Bilirubin 1.10 H AST 16 ALT 14 L Alkaline Phosphatase 83 Total Creatine Kinase Total Protein 8.5 H Albumin 4.7 Globulin 3.8 Albumin/Globulin Ratio 1.2 Triglycerides Salicylates Urine Opiates Screen Urine Methadone Screen Acetaminophen < 2.0 L Ur Barbiturates Screen Ur Phencyclidine Scrn Ur Amphetamines Screen U Methamphetamin-MDMA U Benzodiazepines Scrn Urine Cocaine Screen U Cannabinoids Screen Ur Drug Screen Comment 10/13/18 10/13/18 10/13/18 02:32 03:33 04:45 WBC RBC Hgb Hct MCV MCH MCHC RDW RDW Differential Plt Count MPV Immature Gran % (Auto) Neut % (Auto) Lymph % (Auto) Tillman % (Auto) Eos % (Auto) Baso % (Auto) Absolute Neuts (auto) Absolute Lymphs (auto) Total Counted Specimen Type Sample Site pH Bicarbonate Actual POC Total CO2 Base Excess O2 Saturation O2 % ABG pCO2 ABG pO2 Km Test VBG Carboxyhemoglobin 3.0 H Respiration Rate O2 Delivery Device Minute Volume Vent Mode Tidal Volume POC PEEP Blood Gas Notified Whom Blood Gas Notified Time Sodium Potassium Chloride Carbon Dioxide Anion Gap BUN Creatinine Estim Creat Clear Calc Est GFR (MDRD) Af Amer Est GFR (MDRD) Non-Af BUN/Creatinine Ratio Glucose Calcium Total Bilirubin AST ALT Alkaline Phosphatase Total Creatine Kinase Total Protein Albumin Globulin Albumin/Globulin Ratio Triglycerides Salicylates < 1.7 L Urine Opiates Screen NEGATIVE Urine Methadone Screen NEGATIVE Acetaminophen Ur Barbiturates Screen NEGATIVE Ur Phencyclidine Scrn NEGATIVE Ur Amphetamines Screen NEGATIVE U Methamphetamin-MDMA NEGATIVE U Benzodiazepines Scrn NEGATIVE Urine Cocaine Screen NEGATIVE U Cannabinoids Screen NEGATIVE Ur Drug Screen Comment 10/13/18 10/13/18 10/14/18 07:40 08:26 04:45 WBC 9.6 RBC 4.21 L Hgb 13.1 Hct 38.4 L MCV 91.2 MCH 31.1 MCHC 34.1 RDW 12.3 RDW Differential 40.2 Plt Count 234 MPV 10.0 Immature Gran % (Auto) Neut % (Auto) Lymph % (Auto) Tillman % (Auto) Eos % (Auto) Baso % (Auto) Absolute Neuts (auto) Absolute Lymphs (auto) Total Counted Specimen Type ART Sample Site R Brachial pH 7.39 Bicarbonate Actual 23.7 POC Total CO2 25 Base Excess -1 O2 Saturation 100 H O2 % 50 ABG pCO2 39.4 ABG pO2 268 H Km Test NA VBG Carboxyhemoglobin 1.1 Respiration Rate 12 O2 Delivery Device Vent Minute Volume 5.00 Vent Mode A-C Tidal Volume 400 POC PEEP 5 Blood Gas Notified Whom ICU MD Blood Gas Notified Time 825 Sodium Potassium Chloride Carbon Dioxide Anion Gap BUN Creatinine Estim Creat Clear Calc Est GFR (MDRD) Af Amer Est GFR (MDRD) Non-Af BUN/Creatinine Ratio Glucose Calcium Total Bilirubin AST ALT Alkaline Phosphatase Total Creatine Kinase Total Protein Albumin Globulin Albumin/Globulin Ratio Triglycerides Salicylates Urine Opiates Screen Urine Methadone Screen Acetaminophen Ur Barbiturates Screen Ur Phencyclidine Scrn Ur Amphetamines Screen U Methamphetamin-MDMA U Benzodiazepines Scrn Urine Cocaine Screen U Cannabinoids Screen Ur Drug Screen Comment 10/14/18 04:45 WBC RBC Hgb Hct MCV MCH MCHC RDW RDW Differential Plt Count MPV Immature Gran % (Auto) Neut % (Auto) Lymph % (Auto) Tillman % (Auto) Eos % (Auto) Baso % (Auto) Absolute Neuts (auto) Absolute Lymphs (auto) Total Counted Specimen Type Sample Site pH Bicarbonate Actual POC Total CO2 Base Excess O2 Saturation O2 % ABG pCO2 ABG pO2 Km Test VBG Carboxyhemoglobin Respiration Rate O2 Delivery Device Minute Volume Vent Mode Tidal Volume POC PEEP Blood Gas Notified Whom Blood Gas Notified Time Sodium 141 Potassium 2.9 L Chloride 108 H Carbon Dioxide 28.0 Anion Gap 5 BUN 8 Creatinine 0.93 Estim Creat Clear Calc 102.72 Est GFR (MDRD) Af Amer 131 Est GFR (MDRD) Non-Af 108 BUN/Creatinine Ratio 8.6 L Glucose 108 H Calcium 8.4 L Total Bilirubin AST ALT Alkaline Phosphatase Total Creatine Kinase 472 H Total Protein Albumin Globulin Albumin/Globulin Ratio Triglycerides 113 Salicylates Urine Opiates Screen Urine Methadone Screen Acetaminophen Ur Barbiturates Screen Ur Phencyclidine Scrn Ur Amphetamines Screen U Methamphetamin-MDMA U Benzodiazepines Scrn Urine Cocaine Screen U Cannabinoids Screen Ur Drug Screen Comment Clinical Impression(s) from Imaging Studies Chest X-Ray 10/13/18 03:21 IMPRESSION: Endotracheal tube tip at the level of the T1-2 disc, suggest advancing 4 cm and reimaging. at 0401 Reported and signed by: Reno García MD Electronically Signed: Reno García, at 4:00 EDT Tel , Service support , KUB X-Ray 10/13/18 06:58 IMPRESSION: Enteric tube tip in the mid stomach. at 0030 Reported and signed by: Reno García MD Electronically Signed: Reno García, at 0:28 EDT Tel , Service support , Chest X-Ray 10/13/18 09:40 IMPRESSION: Stable examination. Electronically Signed: Raulito Elaine, at 10:25 EDT , Service support , Medical Necessity - Tobacco Use Smoking Status: Unknown if ever smoked Tobacco Use: - - Unable to obtain since patient is obtunded Assessment/Plan RECOMMENDATIONS: 1. We will proceed with a trial of extubation this morning. Once extubated, wean supplemental oxygen to maintain saturations at or above 90%. 2. Potassium supplementation. 3. Check magnesium level. 4. Obtain blood and urine cultures. Will start Unasyn empirically. 5. Continue Lovenox for DVT prophylaxis 6. Encourage incentive spirometer use and mobilize patient as tolerated. 7. Behavioral health evaluation, once medically stabilized. IMPRESSIONS: 1. Acute hypoxemic respiratory failure The patient was intubated emergently upon arrival to the ED due to his obtunded state. The etiology for his respiratory status is likely secondary to polypharmacy in the setting of an intentional overdose. The patient has improved clinically over the last 24 hours. He is currently a candidate for a trial of extubation. Once extubated, wean supplemental oxygen to maintain saturations at or above 90%. Encourage incentive spirometer use and mobilize patient as tolerated. 2. Encephalopathy Improved. Secondary to polypharmacy in the setting of an intentional Benadryl overdose. The patient's carboxyhemoglobin level was not elevated to the point that significant CO poisoning would be suspected. 3. Hypokalemia Electrolyte repletion as ordered. Check magnesium level as well. 4. Intentional overdose/suicide attempt Complicates care, management, recovery and prognosis. The patient currently has a pink slip in place. He will require evaluation by behavioral health, once medically stabilized. TIME: 38 minutes of critical care time, independent of procedures, was spent addressing the patient's acute respiratory failure, encephalopathy, intentional overdose/suicide attempt, review of all data and collaboration with the care team. ([id number]) Code Visit 9xxxx: [id number] Critical care first hour
[2018-10-14 06:58] LABS: Magnesium 2.3 mg/dL (1.6-2.6)
[2018-10-14] MEDS: 0.9% NaCl IVPB Med Flush (250 mL) 15 ML IV (07:32)
--- NOTE | 2018-10-14 07:38 | PN_ITS ---
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 Patient was intubated in the emergency department and admitted to the intensive care unit for subsequent management 10/14/2016: Patient weaned off the vent this a.m. Diagnostic data reviewed significant for potassium of 2.9 repletion initiated Objective: GENERAL: Somewhat lethargic HEENT: Atraumatic; moist oral mucosa EYES; Anicteric, Normal Conjunctiva NECK; supple, normal thyroid, no distended JVD. RESPIRATORY: Diminished to auscultation bilaterally, CARDIOVASCULAR: Regular S1 S2, no audible murmurs GI: soft, non-tender, normoactive bowel sounds, : No Renal angle tenderness; EXTREMITIES: No edema, no clubbing, no cyanosis. MUSCULOSKELETAL: No Joint Tenderness; no muscle waisting NEURO: Awake; no lateralizing signs. SKIN: No Rash PSYCH; Normal affect Vitals/I&O's: Vital Signs Temp Pulse Resp BP Pulse Ox 100.4 F H 75 10 L 137/98 H 100 10/14/18 06:00 10/14/18 06:00 10/14/18 06:00 10/14/18 06:00 10/14/18 06:00 Oxygen Flow Rate (L/min) 2 Oxygen Delivery Method Mechanical Ventilator Weight: 57.8 kg Body Mass Index (BMI) 19.2 Intake and Output for Last 24 Hours 10/12/18 10/13/18 10/14/18 23:59 23:59 23:59 Intake Total 1474 / 1474 490 / 490 Output Total 2100 / 2100 300 / 300 Balance -626 / -626 190 / 190 Laboratory Results 10/13/18 07:40: VBG Carboxyhemoglobin 1.1 10/13/18 08:26: Specimen Type ART, Sample Site R Brachial, pH 7.39, Bicarbonate Actual 23.7, POC Total CO2 25, Base Excess -1, O2 Saturation 100 H, O2 % 50, ABG pCO2 39.4, ABG pO2 268 H, Km Test NA, Respiration Rate 12, O2 Delivery Device Vent, Minute Volume 5.00, Vent Mode A-C, Tidal Volume 400, POC PEEP 5, Blood Gas Notified Whom ICU , Blood Gas Notified Time 825 10/14/18 04:45: WBC 9.6, RBC 4.21 L, Hgb 13.1, Hct 38.4 L, MCV 91.2, MCH 31.1, MCHC 34.1, RDW 12.3, RDW Differential 40.2, Plt Count 234, MPV 10.0 10/14/18 04:45: Sodium 141, Potassium 2.9 L, Chloride 108 H, Carbon Dioxide 28.0, Anion Gap 5, BUN 8, Creatinine 0.93, Estim Creat Clear Calc 102.72, Est GFR (MDRD) Af Amer 131, Est GFR (MDRD) Non-Af 108, BUN/Creatinine Ratio 8.6 L, Glucose 108 H, Calcium 8.4 L, Total Creatine Kinase 472 H, Triglycerides 113 10/14/18 04:45: Magnesium 2.3 Current Medications Acetaminophen (Tylenol Liquid) 650 mg GT Q6H PRN PRN PRN Reason: Fever >101 Last Admin: 10/14/18 02:16 Dose: 650 mg Bisacodyl (Dulcolax) 5 mg PO DAILY PRN PRN PRN Reason: Constipation Chlorhexidine Gluconate () 15 ml PO BID [facility] Last Admin: 10/13/18 21:28 Dose: 15 ml Chlorhexidine Gluconate () 1 each TOPICAL DAILY [facility] Enoxaparin Sodium (Lovenox) 40 mg SC DAILY@1000 BARRY Last Admin: 10/13/18 10:59 Dose: 40 mg Sodium Chloride () 250 mls @ 15 mls/hr IV .[id number] PRN PRN Reason: SALINE FLUSH Last Admin: 10/14/18 07:32 Dose: 15 mls/hr Ampicillin Sodium/Sulbactam (Sodium 3 gm/ Sodium Chloride) 112 mls @ 150 mls/hr IV Q6 [facility] Last Admin: 10/14/18 07:32 Dose: 150 mls/hr Potassium Chloride () 10 meq in 100 mls @ 100 mls/hr IV BOLUS Q1H [facility] Stop: 10/14/18 11:44 Ondansetron HCl (Zofran) 4 mg IV Q8H PRN PRN PRN Reason: NAUSEA Sodium Chloride () 5 - 15 ml IV UD PRN PRN Reason: SALINE FLUSH Medical Necessity - Tobacco Use Smoking Status: Unknown if ever smoked Tobacco Use: - - Unable to obtain since patient is obtunded Assessment/Plan 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 Patient was intubated in the emergency department and admitted to the intensive care unit for subsequent management 1. Acute hypoxic respiratory failure from severe toxic metabolic encephalopathy patient was intubated in the ED admitted to the intensive care unit with consultation placed to the soda dialyzer patient was weaned off the vent on the morning of 10/14/[address] consultation to the crisis center 2. Acute toxic metabolic encephalopathy from an apparent suicidal attempt from Benadryl overdose and suspected attempted carbon monoxide poisoning (His CO level is only mildly elevated at 3.0.) 3. Severe depression with suicidal attempt 4. Anxiety disorder 5. DVT prophylaxis SC Lovenox 6. Hypokalemia corrected per protocol Code Visit Inpatient E&M: 27701 [facility] L[facility]
[2018-10-14] MEDS: Potassium Chloride 10mEq/100mL 10 MEQ/100 ML IV.SOLN. 100 MEQ IV BOLUS ×4 (08:34→13:26)
--- NOTE | 2018-10-14 09:00 | CASEMGMT ---
Social Work: Spoke with Dr. Abreu regarding patient status. Dr. Abreu requesting crisis consult be made tomorrow as patient will be medically stable. Attended ICU rounds. Patient is now extubated. Patient alert and oriented during ICU rounds and host mother Beryl also present. This SW spent time with patient and host mother, with patients permission, in room after ICU rounds. This SW explained to patient and host mother that a social service worker will meet with patient tomorrow to assess need for psychiatric placement. Patient verbalized understanding. Support given. Will continue to follow to assist as needed with crisis consult and emotional support to patient. DAVID Connell
[2018-10-14] MEDS: CHLORHEXIDINE GLUC 2% CLOTH 1 EACH TOWELETTE TOPICAL (09:49)
[2018-10-14] MEDS: Enoxaparin 40 MG/0.4 ML Syringe SC (09:51)
--- NOTE | 2018-10-14 10:00 | CASEMGMT ---
Social Work: TC from RADHA Wiseman. Ivone states that there is a family member on the phone requesting a letter indicating that patient is at [facility] ICU. Per the family member, the patient's sister is attempting to get an emergency Visa to come to the [place]. This SW asked Ivone to get permission for this SW to speak to family member. Ivone obtained permission and transferred call to this SW. This SW spoke with Noel, patients family member, who is requesting a letter be e-mailed to him stating that patient is in the ICU. Noel states that they will need the letter to give to the embassy so that patient's sister is able to get an emergency Visa. Noel provided this SW with e-mail address ([email or web address]). Will speak with patient regarding this. Spoke with patient in room regarding TC from family member Noel. Patient is giving this SW permission to e-mail a letter to Noel to assist in getting his sister an emergency Visa to come to the [place]. Release of information signed by patient and put in chart. Patient also giving this SW permission to call Naina Mckeon, [facility] Director of International Student Services, to update on family attempting to come to the [facility]. TC to Naina Mckeon at [facility]. Naina aware that family is requesting a letter from the hospital. Naina will also be sending an invitation letter to family member Noel to forward to the embassy in addition to the hospital letter. Will continue to follow to assist as needed with D/C planning and support to patient and family. Letter indicating patient admission e-mailed to family member Noel with patient permission. DAVID Connell
--- NOTE | 2018-10-14 15:22 | CHAPLAIN ---
Type of Pastoral Visit _x__ Initial Visit ___ Follow-up Visit ___ On-call Visit ___ General Patient Visit ___ Spiritual Assessment ___ Family Conference ___ Bereavement ___ Rapid Response ___ Code Blue ___ Other (describe below) Pastoral Care Referral From _x__ Patient ___ Family ___ Nurse ___ Physician ___ Media Consultant ___ Professional System Administrator ___ Other (describe below) Sacrament/Intervention _x__ Active listening ___ Anointing ___ Voodoo ___ Bereavement ___ Communion ___ Ale exploration ___ _x__ Life review _x__ Prayer ___ Reconciliation ___ Sacrament of Sick _x__ Supportive presence ___ Wedding ___ Other (describe below) Pastoral Comments hospital sitter and patient's cape verdean mom are in room with patient; pt says that he does not remember the events of yesterday; pt is asked about his life and pt enters into conversation that is long and travels through many thoughts; pt declares that I do not know who I am and how can I?; pt speaks of painful past and that once he shared that with a friend and that friend turned as did other friends; pt says that therefore he is reluctant to speak openly to people; pt speaks of some life adventures and activities; pt at times becomes tearful but tries to control those emotions and apologizes for them; pt also laughs at times during conversation and admits that he is glad to be alive; pt agrees that he has emotions and can feel them because he is alive; pt states that he is running from his problems;
[2018-10-14] MEDS: Acetaminophen 325 MG Tablet 650 MG PO (17:39)
[2018-10-14] MEDS: 0.9% NaCl Peripheral Flush Adult/Peds IV (17:39)
[2018-10-15] VITALS (13 sets, daily range): BP systolic 116–136; BP diastolic 57–94; PULSE 63–98; RESP 15–19; TEMP 36.6–37; O2SAT 97–100
[2018-10-15] MEDS: Acetaminophen 325 MG Tablet 650 MG PO ×2 (00:38→08:27)
[2018-10-15] MEDS: 0.9% NaCl Peripheral Flush Adult/Peds IV (05:00)
[2018-10-15] MEDS: 0.9% NaCl IVPB Med Flush (250 mL) 15 ML IV (05:03)
[2018-10-15 05:18] LABS: Hematocrit 35.4 % (40-54); Hemoglobin 12.1 g/dl (13.0-16.5); Mean Corp Hgb Conc 34.2 g/gl (32-36); Mean Corpuscular Hgb 30.9 pg (27.0-32.0); Mean Corpuscular Volume 90.5 fL (80-94); Mean Platelet Vol. 10.1 fl (6.2-12.0); Platelet Count 215 K/mm3 (150-450); RBC Distribution Width CV 12.2 % (11.6-14.6); RBC Distribution Width SD 39.4 fl (35.1-43.9); Red Blood Count 3.91 M/mm3 (4.6-6.2); White Blood Count 7.5 K/mm3 (4.4-11.0)
[2018-10-15 05:24] LABS: Scan Indicated on CBC? Y/N NO
[2018-10-15 05:40] LABS: Anion Gap 8 (5-15); BUN 6 mg/dL (7-18); BUN/Creat Ratio 8.4 RATIO (10-20); Calcium,Total 8.6 mg/dL (8.5-10.1); Chloride 109 mmol/L (98-107); Creatinine, Serum 0.71 mg/dL (0.70-1.30); EST Glomerular Filtration Rate 147 mL/min (>60); Est Glom Filt Rate - Afr Amer 178 mL/min (>60); Estimated Creatinine Clearance 134.55 ml/min; Glucose 98 mg/dL (74-106); Potassium 3.6 mmol/L (3.5-5.1); Sodium Level 144 mmol/L (136-145)
--- NOTE | 2018-10-15 06:36 | PN_ITS ---
Subjective: The patient was seen and examined at the bedside this morning. Events from the last 24 hours have been reviewed. The patient is currently afebrile, hemodynamically stable and maintaining appropriate oxygen saturations on room air. No overnight events were noted by the nursing staff. Objective: The patient's most recent lab work, culture data and imaging studies have all been personally reviewed. Blood and urine cultures have revealed no growth to date. General: Alert, Cooperative, No apparent distress HEENT: Atraumatic, PERRLA, Normocephalic Oral: No Gingival or Mucosal Lesions/ Ulcerations Neck: Supple, No Nodes, Trachea Midline Lungs: Normal air movement, No rhonchi, No wheeze, No rales Cardiovascular: Regular rate, Regular Rhythm, Normal S1, Normal S2, No murmurs Abdomen: Bowel Sounds Present, Soft, Non Tender, Non-Distended Extremities: No clubbing, No cyanosis, No edema, Capillary Refill Less than 3 Seconds Skin: No breakdown Musculoskeletal: No Tenderness to Palpation of Joints or Extremities, No Muscle Wasting Lymphatic: No Cervical, Supraclavicular, or Inguinal Adenopathy Neurological: Cranial nerves II-XII grossly intact, Neuro grossly intact Psych/Mental Status: Flat Affect, Depressed Vital Signs Temp Pulse Resp BP Pulse Ox 37.0 C 69 16 122/75 H 97 10/15/18 04:00 10/15/18 04:00 10/15/18 04:00 10/15/18 04:00 10/15/18 04:00 Oxygen Flow Rate (L/min) 2 Oxygen Delivery Method Room Air Weight: 127 lb 6.835 oz Body Mass Index (BMI) 19.2 Intake and Output for Last 24 Hours 10/13/18 10/14/18 10/15/18 23:59 23:59 23:59 Intake Total 1474 / 1474 3097 / 3097 Output Total 2100 / 2100 5550 / 5550 Balance -626 / -626 -2453 / -2453 Labs (Last 48 Hours) 10/13/18 10/13/18 10/14/18 07:40 08:26 04:45 WBC 9.6 RBC 4.21 L Hgb 13.1 Hct 38.4 L MCV 91.2 MCH 31.1 MCHC 34.1 RDW 12.3 RDW Differential 40.2 Plt Count 234 MPV 10.0 Specimen Type ART Sample Site R Brachial pH 7.39 Bicarbonate Actual 23.7 POC Total CO2 25 Base Excess -1 O2 Saturation 100 H O2 % 50 ABG pCO2 39.4 ABG pO2 268 [address] Test NA VBG Carboxyhemoglobin 1.1 Respiration Rate 12 O2 Delivery Device Vent Minute Volume 5.00 Vent Mode A-C Tidal Volume 400 POC PEEP 5 Blood Gas Notified Whom ICU MD Blood Gas Notified Time 825 Sodium Potassium Chloride Carbon Dioxide Anion Gap BUN Creatinine Estim Creat Clear Calc Est GFR (MDRD) Af Amer Est GFR (MDRD) Non-Af BUN/Creatinine Ratio Glucose Calcium Magnesium Total Creatine Kinase Triglycerides 10/14/18 10/14/18 10/15/18 04:45 04:45 05:00 WBC 7.5 RBC 3.91 L Hgb 12.1 L Hct 35.4 L MCV 90.5 MCH 30.9 MCHC 34.2 RDW 12.2 RDW Differential 39.4 Plt Count 215 MPV 10.1 Specimen Type Sample Site pH Bicarbonate Actual POC Total CO2 Base Excess O2 Saturation O2 % ABG pCO2 ABG pO2 Km Test VBG Carboxyhemoglobin Respiration Rate O2 Delivery Device Minute Volume Vent Mode Tidal Volume POC PEEP Blood Gas Notified Whom Blood Gas Notified Time Sodium 141 Potassium 2.9 L Chloride 108 H Carbon Dioxide 28.0 Anion Gap 5 BUN 8 Creatinine 0.93 Estim Creat Clear Calc 102.72 Est GFR (MDRD) Af Amer 131 Est GFR (MDRD) Non-Af 108 BUN/Creatinine Ratio 8.6 L Glucose 108 H Calcium 8.4 L Magnesium 2.3 Total Creatine Kinase 472 H Triglycerides 113 10/15/18 05:00 WBC RBC Hgb Hct MCV MCH MCHC RDW RDW Differential Plt Count MPV Specimen Type Sample Site pH Bicarbonate Actual POC Total CO2 Base Excess O2 Saturation O2 % ABG pCO2 ABG pO2 Km Test VBG Carboxyhemoglobin Respiration Rate O2 Delivery Device Minute Volume Vent Mode Tidal Volume POC PEEP Blood Gas Notified Whom Blood Gas Notified Time Sodium 144 Potassium 3.6 Chloride 109 H Carbon Dioxide 27.0 Anion Gap 8 BUN 6 L Creatinine 0.71 Estim Creat Clear Calc 134.55 Est GFR (MDRD) Af Amer 178 Est GFR (MDRD) Non-Af 147 BUN/Creatinine Ratio 8.4 L Glucose 98 Calcium 8.6 Magnesium Total Creatine Kinase Triglycerides Clinical Impression(s) from Imaging Studies Chest X-Ray 10/13/18 03:21 IMPRESSION: Endotracheal tube tip at the level of the T1-2 disc, suggest advancing 4 cm and reimaging. at 0401 Reported and signed by: Reno García MD Electronically Signed: Reno García, at 4:00 EDT Tel , Service support , KUB X-Ray 10/13/18 06:58 IMPRESSION: Enteric tube tip in the mid stomach. at 0030 Reported and signed by: Reno García MD Electronically Signed: Reno García, at 0:28 EDT Tel , Service support , Chest X-Ray 10/13/18 09:40 IMPRESSION: Stable examination. Electronically Signed: Raulito Elaine, at 10:25 EDT , Service support , Medical Necessity - Tobacco Use Smoking Status: Unknown if ever smoked Tobacco Use: - - Unable to obtain since patient is obtunded Assessment/Plan RECOMMENDATIONS: 1. As the patient is currently afebrile and without an elevated white blood cell count or signs of infection, will discontinue antibiotics. 2. Continue appropriate DVT prophylaxis. 3. The patient is medically stable from my perspective for evaluation by behavioral health. IMPRESSIONS: 1. Acute hypoxemic respiratory failure The patient was intubated emergently upon arrival to the ED due to his obtunded state. The etiology for his respiratory status is likely secondary to polypharmacy in the setting of an intentional overdose. The patient improved clinically and was able to be extubated on the morning of October 14. His respir atory status is currently at its baseline. Recommend continuing the use of an incentive spirometer while in bed. Mobilize patient as tolerated. 2. Encephalopathy Resolved. Secondary to polypharmacy in the setting of an intentional Benadryl overdose. The patient's carboxyhemoglobin level was not elevated to the point that significant CO poisoning would be suspected. 3. Intentional overdose/suicide attempt Complicates care, management, recovery and prognosis. The patient currently has a pink slip in place. The patient can be evaluated today by behavioral health, as he is medically clear for evaluation. This note was generated with [employer] dictation software. It may contain incorrect words, spelling, and punctuation that were not noted in checking the note before signing. Code Visit Inpatient E&M: 75305 Subs Hosp L3
--- NOTE | 2018-10-15 07:38 | PCM.PN.HOSP ---
Subjective: Patient seen, had a relatively uneventful night. Diagnostic data reviewed. Patient is medically stable to be evaluated by the crisis team Objective: GENERAL: Not in distress HEENT: Atraumatic; moist oral mucosa EYES; Anicteric, Normal Conjunctiva NECK; supple, normal thyroid, no distended JVD. RESPIRATORY: Diminished to auscultation bilaterally, CARDIOVASCULAR: Regular S1 S2, no audible murmurs GI: soft, non-tender, normoactive bowel sounds, : No Renal angle tenderness; EXTREMITIES: No edema, no clubbing, no cyanosis. MUSCULOSKELETAL: No Joint Tenderness; no muscle waisting NEURO: Awake; no lateralizing signs. SKIN: No Rash PSYCH;flat affect Vitals/I&O's: Vital Signs Temp Pulse Resp BP Pulse Ox 98.6 F 70 16 125/63 H 99 10/15/18 04:00 10/15/18 06:00 10/15/18 06:00 10/15/18 06:00 10/15/18 06:00 Oxygen Flow Rate (L/min) 2 Oxygen Delivery Method Room Air Weight: 58.4 kg Body Mass Index (BMI) 19.2 Intake and Output for Last 24 Hours 10/13/18 10/14/18 10/15/18 23:59 23:59 23:59 Intake Total 1474 / 1474 3097 / 3097 425 / 425 Output Total 2100 / 2100 5550 / 5550 900 / 900 Balance -626 / -626 -2453 / -2453 -475 / -475 Laboratory Results 10/15/18 05:00: WBC 7.5, RBC 3.91 L, Hgb 12.1 L, Hct 35.4 L, MCV 90.5, MCH 30.9, MCHC 34.2, RDW 12.2, RDW Differential 39.4, Plt Count 215, MPV 10.1 10/15/18 05:00: Sodium 144, Potassium 3.6, Chloride 109 H, Carbon Dioxide 27.0, Anion Gap 8, BUN 6 L, Creatinine 0.71, Estim Creat Clear Calc 134.55, Est GFR (MDRD) Af Amer 178, Est GFR (MDRD) Non-Af 147, BUN/Creatinine Ratio 8.4 L, Glucose 98, Calcium 8.6 Current Medications Acetaminophen (Tylenol) 650 mg PO Q6H PRN PRN PRN Reason: Fever >101 Last Admin: 10/15/18 00:38 Dose: 650 mg Bisacodyl (Dulcolax) 5 mg PO DAILY PRN PRN PRN Reason: Constipation Chlorhexidine Gluconate () 1 each TOPICAL DAILY [facility] Last Admin: 10/14/18 09:49 Dose: 1 each Enoxaparin Sodium (Lovenox) 40 mg SC DAILY@1000 BARRY Last Admin: 10/14/18 09:51 Dose: 40 mg Sodium Chloride () 250 mls @ 15 mls/hr IV .[id number] PRN PRN Reason: SALINE FLUSH Last Admin: 10/15/18 05:03 Dose: 15 mls/hr Nutritional Formula (Lactose Free) (Ensure Enlive) 120 ml PO 4X/DAY [facility] Last Admin: 10/14/18 21:44 Dose: Not Given Ondansetron HCl (Zofran) 4 mg IV Q8H PRN PRN PRN Reason: NAUSEA Sodium Chloride () 5 - 15 ml IV UD PRN PRN Reason: SALINE FLUSH Last Admin: 10/15/18 05:00 Dose: 10 ml Medical Necessity - Tobacco Use Smoking Status: Unknown if ever smoked Tobacco Use: - - Unable to obtain since patient is obtunded Assessment/Plan 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 who was brought in after an apparent suicidal attempt. Patient was intubated in the emergency department and admitted to the intensive care unit for subsequent management 1. Acute hypoxic respiratory failure from severe toxic metabolic encephalopathy patient was intubated in the ED admitted to the intensive care unit with consultation placed to the infrastructure tech patient was weaned off the vent on the morning of 10/14/2016 patient medically stable as of the morning of 10/15/2018 to be evaluated by the crisis team. 2. Acute toxic metabolic encephalopathy from an apparent suicidal attempt from Benadryl overdose and suspected attempted carbon monoxide poisoning (His CO level is only mildly elevated at 3.0.) 3. Severe depression with suicidal attempt 4. Anxiety disorder 5. DVT prophylaxis SC Lovenox 6. Hypokalemia corrected per protocol Code Visit Inpatient E&M: 36062 Subs Hosp L2
--- NOTE | 2018-10-15 08:19 | NURSING ---
Pt has flat affect, poor attention span. Unsteady gait, after emotional support provided, gait became steady. Medically cleared for crisis consult. Updated Tessa from crisis on history and current status. They will be here shortly.
[2018-10-15] MEDS: Enoxaparin 40 MG/0.4 ML Syringe SC (08:28)
--- NOTE | 2018-10-15 13:42 | CASEMGMT ---
Social Work: Spoke with Tessa from Crisis who is here to evaluate patient. This SW provided Tessa with contact information for Naina Mckeon, Director of International Student Studies at [facility]. This SW made Tessa aware that patient has given permission, both verbally and by signing a release of information, to communicate with Naina. SW to continue to follow as needed. DAVID Connell
[2018-10-15 21:01] LABS: Bedside Glucose 95 mg/dL (70-110)
[2018-10-16 03:00] VITALS: BP 99/52; PULSE 88; RESP 16; TEMP 37.1; O2SAT 97
--- NOTE | 2018-10-16 06:58 | PN_ITS ---
Subjective: The patient was seen and examined at the bedside this morning. Events from the last 24 hours have been reviewed. The patient is currently afebrile, hemodynamically stable and maintaining appropriate oxygen saturations on room air. The patient has done well clinically following transfer out of the intensive care unit yesterday. The patient is awaiting behavioral health placement. Objective: The patient's most recent lab work, culture data and imaging studies have all been personally reviewed. Infectious workup has been negative to date. - Physical Exam General: Alert, Cooperative, No apparent distress HEENT: Atraumatic, PERRLA, Normocephalic Oral: Moist Mucosa, No Gingival or Mucosal Lesions/ Ulcerations Neck: Supple, No Nodes, Trachea Midline Lungs: Normal air movement, No rhonchi, No wheeze, No rales Cardiovascular: Regular rate, Regular Rhythm, Normal S1, Normal S2, No murmurs Abdomen: Bowel Sounds Present, Soft, Non Tender, Non-Distended Extremities: No clubbing, No cyanosis, No edema, Capillary Refill Less than 3 Seconds Skin: No rashes, No breakdown Musculoskeletal: No Tenderness to Palpation of Joints or Extremities, No Muscle Wasting Lymphatic: No Cervical, Supraclavicular, or Inguinal Adenopathy Neurological: Cranial nerves II-XII grossly intact, Neuro grossly intact Psych/Mental Status: Flat Affect Vital Signs Temp Pulse Resp BP Pulse Ox 37.1 C 88 16 99/52 L 97 10/16/18 03:00 10/16/18 03:00 10/16/18 03:00 10/16/18 03:00 10/16/18 03:00 Oxygen Flow Rate (L/min) 2 Oxygen Delivery Method Room Air Weight: 127 lb 10.362 oz Body Mass Index (BMI) 19.2 Intake and Output for Last 24 Hours 10/14/18 10/15/18 10/16/18 23:59 23:59 23:59 Intake Total 3097 / 3097 925 / 925 690 / 690 Output Total 5550 / 5550 900 / 900 Balance -2453 / -2453 25 / 25 690 / 690 Microbiology Past 72 Hours 10/14/18 06:45 Urine Culture - Preliminary Urine Catheter - Jackson Culture exhibits no growth. POC Glucose 10/15/18 20:56 POC Glucose 95 Labs (Last 48 Hours) 10/14/18 10/15/18 10/15/18 04:45 05:00 05:00 WBC 7.5 RBC 3.91 L Hgb 12.1 L Hct 35.4 L MCV 90.5 MCH 30.9 MCHC 34.2 RDW 12.2 RDW Differential 39.4 Plt Count 215 MPV 10.1 Sodium 144 Potassium 3.6 Chloride 109 H Carbon Dioxide 27.0 Anion Gap 8 BUN 6 L Creatinine 0.71 Estim Creat Clear Calc 134.55 Est GFR (MDRD) Af Amer 178 Est GFR (MDRD) Non-Af 147 BUN/Creatinine Ratio 8.4 L Glucose 98 Calcium 8.6 Magnesium 2.3 POC Glucose 10/15/18 20:56 WBC RBC Hgb Hct MCV MCH MCHC RDW RDW Differential Plt Count MPV Sodium Potassium Chloride Carbon Dioxide Anion Gap BUN Creatinine Estim Creat Clear Calc Est GFR (MDRD) Af Amer Est GFR (MDRD) Non-Af BUN/Creatinine Ratio Glucose Calcium Magnesium POC Glucose 95 Microbiology 10/14/18 06:45 Urine Catheter - Jackson Urine Culture - Preliminary Culture exhibits no growth. Clinical Impression(s) from Imaging Studies Chest X-Ray 10/13/18 03:21 IMPRESSION: Endotracheal tube tip at the level of the T1-2 disc, suggest advancing 4 cm and reimaging. at 0401 Reported and signed by: Reno García MD Electronically Signed: Reno García, at 4:00 EDT Tel , Service support , KUB X-Ray 10/13/18 06:58 IMPRESSION: Enteric tube tip in the mid stomach. at 0030 Reported and signed by: Reno García MD Electronically Signed: Reno García, at 0:28 EDT Tel , Service support , Chest X-Ray 10/13/18 09:40 IMPRESSION: Stable examination. Electronically Signed: Raulito Elaine, at 10:25 EDT , Service support , Medical Necessity - Tobacco Use Smoking Status: Unknown if ever smoked Tobacco Use: - - Unable to obtain since patient is obtunded Assessment/Plan RECOMMENDATIONS: 1. Await behavioral health placement. 2. Given the patient's lack of ICU or pulmonary needs, will sign off. Please call with any additional questions. IMPRESSIONS: 1. Acute hypoxemic respiratory failure The patient was intubated emergently upon arrival to the ED due to his obtunded state. The etiology for his respiratory status is likely secondary to polypharmacy in the setting of an intentional overdose. The patient improved clinically and was able to be extubated on the morning of October 14. His respir atory status is currently at its baseline. Recommend continuing the use of an incentive spirometer while in bed. Mobilize patient as tolerated. 2. Encephalopathy Resolved. Secondary to polypharmacy in the setting of an intentional Benadryl overdose. The patient's carboxyhemoglobin level was not elevated to the point that significant CO poisoning would be suspected. 3. Intentional overdose/suicide attempt Complicates care, management, recovery and prognosis. The patient was evaluated by the crisis team and is currently awaiting behavioral health placement. This note was generated with [employer] dictation software. It may contain incorrect words, spelling, and punctuation that were not noted in checking the note before signing. Code Visit Inpatient E&M: 78564 Subs Hosp L2
--- NOTE | 2018-10-16 08:10 | PCM.PROGNOTE ---
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 The patient was intubated in the ED and admitted to the ICU. He was transferred to regular medical floor on 10/15/2018. All events of the past 24 hours of been reviewed. He is afebrile with stable vital signs in the pulse ox on room air ranges from 97-100%. Preliminary on the urine culture is no growth. Blood cultures are pending. All previous lab work was reviewed. - Physical Exam Vital Signs Temp Pulse Resp BP Pulse Ox 98.8 F 88 16 99/52 L 97 10/16/18 03:00 10/16/18 03:00 10/16/18 03:00 10/16/18 03:00 10/16/18 03:00 Oxygen Flow Rate (L/min) 2 Oxygen Delivery Method Room Air Weight: 127 lb 10.362 oz Body Mass Index (BMI) 19.2 Intake and Output for Last 24 Hours 10/14/18 10/15/18 10/16/18 23:59 23:59 23:59 Intake Total 3097 / 3097 925 / 925 690 / 690 Output Total 5550 / 5550 900 / 900 Balance -2453 / -2453 25 / 25 690 / 690 Microbiology Past 72 Hours 10/14/18 06:45 Urine Culture - Preliminary Urine Catheter - Jackson Culture exhibits no growth. POC Glucose 10/15/18 20:56 POC Glucose 95 Medical Necessity - Tobacco Use Smoking Status: Unknown if ever smoked Tobacco Use: - - Unable to obtain since patient is obtunded
--- NOTE | 2018-10-16 08:14 | PN_ITS ---
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 The patient was intubated in the ED and admitted to the ICU. He was transferred to regular medical floor on 10/15/2018. All events of the past 24 hours of been reviewed. He is afebrile with stable vital signs in the pulse ox on room air ranges from 97-100%. Preliminary on the urine culture is no growth. Blood cultures are pending. All previous lab work was reviewed. - Physical Exam Vital Signs Temp Pulse Resp BP Pulse Ox 98.8 F 88 16 99/52 L 97 10/16/18 03:00 10/16/18 03:00 10/16/18 03:00 10/16/18 03:00 10/16/18 03:00 Oxygen Flow Rate (L/min) 2 Oxygen Delivery Method Room Air Weight: 127 lb 10.362 oz Body Mass Index (BMI) 19.2 Intake and Output for Last 24 Hours 10/14/18 10/15/18 10/16/18 23:59 23:59 23:59 Intake Total 3097 / 3097 925 / 925 690 / 690 Output Total 5550 / 5550 900 / 900 Balance -2453 / -2453 25 / 25 690 / 690 Microbiology Past 72 Hours 10/14/18 06:45 Urine Culture - Preliminary Urine Catheter - Jackson Culture exhibits no growth. POC Glucose 10/15/18 20:56 POC Glucose 95 Medical Necessity - Tobacco Use Smoking Status: Unknown if ever smoked Tobacco Use: - - Unable to obtain since patient is obtunded
[2018-10-16 09:01] VITALS: BP 119/66; PULSE 69; RESP 15; TEMP 36.7; O2SAT 100
[2018-10-16] MEDS: Enoxaparin 40 MG/0.4 ML Syringe SC (10:26)
--- NOTE | 2018-10-16 11:20 | PCM.DC ---
- Discharge Diagnoses Current Active Problems: Current Active and Chronic Problems (Last Updated 10/13/18 @ 06:25 by Hay Ng MD) Depression (Chronic) You will use the following diet at home:: No restrictions Your food should be the consistency of: Regular Your liquids should be the consistency of: Regular/Thin Discharge Activity: - - No activity restrictions Allergies/Adverse Reactions: Allergies No Known Allergies Allergy (Verified 10/13/18 02:37) Medications to take at Discharge Citalopram [Celexa] 20 mg PO DAILY 10/13/18 hydrOXYzine pamoate capsule [Vistaril pamoate capsule] 1 - 2 tab PO Q6H PRN PRN 10/13/18 Primary Care Physician: NOT,DEFINED [NON-STAFF] - Test Results: Test results from this visit will be discussed in further detail at your follow-up appointment, if applicable. Proposed Discharge Date: 10/16/18
--- NOTE | 2018-10-16 11:24 | DCINST_ITS ---
- Discharge Diagnoses Current Active Problems: Current Active and Chronic Problems (Last Updated 10/13/18 @ 06:25 by Hay Ng MD) Depression (Chronic) You will use the following diet at home:: No restrictions Your food should be the consistency of: Regular Your liquids should be the consistency of: Regular/Thin Discharge Activity: - - No activity restrictions Allergies/Adverse Reactions: Allergies No Known Allergies Allergy (Verified 10/13/18 02:37) Medications to take at Discharge Citalopram [Celexa] 20 mg PO DAILY 10/13/18 hydrOXYzine pamoate capsule [Vistaril pamoate capsule] 1 - 2 tab PO Q6H PRN PRN 10/13/18 Primary Care Physician: NOT,DEFINED [NON-STAFF] - Test Results: Test results from this visit will be discussed in further detail at your follow- up appointment, if applicable. Proposed Discharge Date: 10/16/18
--- NOTE | 2018-10-16 11:28 | PCM.DC.SUM ---
Discharge Date and Diagnosis - Problem List Patient Problems: Active and Suspected Problems (Last Updated 10/13/18 @ 06:25 by Hya Ng MD) Toxic encephalopathy (Acute) Hypokalemia (Acute) Acute respiratory failure with hypoxia (Acute) Suicide attempt (Acute) Date of Admission: 10/13/18 Date of Discharge: 10/16/18 - Primary Discharge Diagnosis Active and Suspected Problems (Last Updated 10/13/18 @ 06:25 by Hay Ng MD) Acute respiratory failure with hypoxia (Acute) and requiring intubation and mechanical ventilation Suicide attempt (Acute) with Benadryl OD and attempted CO poisoning Toxic encephalopathy (Acute) -secondary to drug overdose Benadryl Hypokalemia (Acute)-resolved - Secondary Discharge Diagnosis Chronic Problems (Last Updated 10/13/18 @ 06:25 by Hay Ng MD) Anxiety (Chronic) Depression (Chronic) Hospital Course and Treatment Imaging Results: Clinical Impression(s) from Imaging Studies Chest X-Ray 10/13/18 03:21 IMPRESSION: Endotracheal tube tip at the level of the T1-2 disc, suggest advancing 4 cm and reimaging. at 0401 Reported and signed by: Reno García MD Electronically Signed: Reno García, at 4:00 EDT Tel , Service support , KUB X-Ray 10/13/18 06:58 IMPRESSION: Enteric tube tip in the mid stomach. at 0030 Reported and signed by: Reno García MD Electronically Signed: Reno García, at 0:28 EDT Tel , Service support , Chest X-Ray 10/13/18 09:40 IMPRESSION: Stable examination. Electronically Signed: Raulito Elaine, at 10:25 EDT , Service support , Laboratory Results - last 24 hr 10/15/18 20:56 POC Glucose 95 Microbiology 10/14/18 07:05 Blood Culture (Wb) - Anticubital Left Blood Culture - Preliminary No growth in 48 hours. 10/14/18 07:15 Blood Culture (Wb) - Anticubital Right Blood Culture - Preliminary No growth in 48 hours. 10/14/18 06:45 Urine Catheter - Jackson Urine Culture - Final Culture exhibits no growth. Dr. 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 He is living with a host family while he attends the [employer] in [place]. He was brought to the emergency room unresponsive on 10/13/2018 secondary to overdose with an unknown amount of Benadryl and then he placed a tube connecting the exhaust of his vehicle to the interior portion of the automobile. He was in the exhaust fumes for approximately 15 minutes. Carbon oxyhemoglobin was noted to be 3.0 at admission. On presentation to the emergency department he was afebrile and hemodynamically stable. CBC revealed no evidence of leukocytosis. Chemistry profile was unremarkable. Toxicology screen was negative for drugs of abuse. He was emergently intubated at presentation to the emergency room because he was unresponsive and unable to protect his airway. He was transferred to the intensive care unit. He was extubated on 10/14/2016 and on 10/15/2016 was transferred from the intensive care unit to a medical surgical floor with a 24-hour sitter. He initially had a low-grade fever however once he was extubated the fever resolved. Blood and urine culture were negative. White blood cells remained within normal limits. He was seen by the [facility] crisis team and arrangements were made for admission to [facility], [facility]. On 10/16/2018 he was afebrile with stable vital signs. Pulse ox on room air ranged from 97-100%. Denied suicidal ideation. His only complaint was lightheadedness which may be due to visual effects of Benadryl overdose. Transportation was arranged to [place] and the patient was stable for discharge. PHYSICAL EXAM: GENERAL: alert, oriented X 3, Cooperative, NAD ORAL: moist mucosa, no mucosal lesions NECK: No JVD, supple, trachea midline LUNGS: CTA, symmetric chest expansion HEART: RRR, Normal S1 and S2, no rub, no gallop ABDOMEN: soft, NT, ND, BS present, no guarding with palpation EXTREMITIES: no edema, no cyanosis, no calf tenderness SKIN: No rashes, no breakdown NEUROLOGIC: no focal neurologic deficits PSYCH: appropriate, normal affect, pleasant This note was generated with iSpecimen dictation software. It may contain incorrect words, spelling, and punctuation that were not noted in checking the note before signing. Patient Problems: Active and Suspected Problems (Last Updated 10/13/18 @ 06:25 by Hay Ng MD) Toxic encephalopathy (Acute) Hypokalemia (Acute) Acute respiratory failure with hypoxia (Acute) Suicide attempt (Acute) - Physical Exam Vital Signs Temp Pulse Resp BP Pulse Ox 98.1 F 69 15 119/66 100 10/16/18 09:01 10/16/18 09:01 10/16/18 09:01 10/16/18 09:01 10/16/18 09:01 Oxygen Flow Rate (L/min) 2 Oxygen Delivery Method Room Air Weight: 127 lb 10.362 oz Body Mass Index (BMI) 19.2 Intake and Output for Last 24 Hours 10/14/18 10/15/18 10/16/18 23:59 23:59 23:59 Intake Total 3097 / 3097 925 / 925 690 / 690 Output Total 5550 / 5550 900 / 900 Balance -2453 / -2453 25 690 / 690 Microbiology Past 72 Hours 10/14/18 07:05 Blood Culture - Preliminary Blood Culture (Wb) - Anticubital Left No growth in 48 hours. 10/14/18 07:15 Blood Culture - Preliminary Blood Culture (Wb) - Anticubital Right No growth in 48 hours. 10/14/18 06:45 Urine Culture - Final Urine Catheter - Jackson Culture exhibits no growth. POC Glucose 10/15/18 20:56 POC Glucose 95 Discharge Activity: - - No activity restrictions Call your doctor if you observe: Fever of 101 or Higher Home Medications: Medications to take at Discharge Citalopram [Celexa] 20 mg PO DAILY 10/13/18 hydrOXYzine pamoate capsule [Vistaril pamoate capsule] 1 - 2 tab PO Q6H PRN PRN 10/13/18 Primary Care Physician: NOT,DEFINED [NON-STAFF] - Disposition: Psych Hospital or Unit Minutes spent on discharge:: 40 Patient Condition:: Stable Medical Necessity - Tobacco Use Smoking Status: Never smoker Tobacco Use: Non-smoker Meaningful Use Info Meaningful Use Diagnoses (Choose all that apply): None applicable Code Visit Inpatient E&M: 62058 Disch Hosp
--- NOTE | 2018-10-16 11:35 | NURSING ---
REPORT CALLED TO [facility] AND GAVE REPORT TO MARIA TERESA MOORE
--- NOTE | 2018-10-16 11:41 | DS.PCM_ITS ---
Discharge Date and Diagnosis - Problem List Patient Problems: Active and Suspected Problems (Last Updated 10/13/18 @ 06:25 by Hay Ng MD) Toxic encephalopathy (Acute) Hypokalemia (Acute) Acute respiratory failure with hypoxia (Acute) Suicide attempt (Acute) Date of Admission: 10/13/18 Date of Discharge: 10/16/18 - Primary Discharge Diagnosis Active and Suspected Problems (Last Updated 10/13/18 @ 06:25 by Hay Ng MD) Acute respiratory failure with hypoxia (Acute) and requiring intubation and mechanical ventilation Suicide attempt (Acute) with Benadryl OD and attempted CO poisoning Toxic encephalopathy (Acute) -secondary to drug overdose Benadryl Hypokalemia (Acute)-resolved - Secondary Discharge Diagnosis Chronic Problems (Last Updated 10/13/18 @ 06:25 by Hay Ng MD) Anxiety (Chronic) Depression (Chronic) Hospital Course and Treatment Imaging Results: Clinical Impression(s) from Imaging Studies Chest X-Ray 10/13/18 03:21 IMPRESSION: Endotracheal tube tip at the level of the T1-2 disc, suggest advancing 4 cm and reimaging. at 0401 Reported and signed by: Reno García MD Electronically Signed: Reno García, at 4:00 EDT Tel , Service support , KUB X-Ray 10/13/18 06:58 IMPRESSION: Enteric tube tip in the mid stomach. at 0030 Reported and signed by: Reno García MD Electronically Signed: Reno García, at 0:28 EDT Tel , Service support , Chest X-Ray 10/13/18 09:40 IMPRESSION: Stable examination. Electronically Signed: Raulito Elaine, at 10:25 EDT , Service support , Laboratory Results - last 24 hr 10/15/18 20:56 POC Glucose 95 Microbiology 10/14/18 07:05 Blood Culture (Wb) - Anticubital Left Blood Culture - Preli minary No growth in 48 hours. 10/14/18 07:15 Blood Culture (Wb) - Anticubital Right Blood Culture - Preliminary No growth in 48 hours. 10/14/18 06:45 Urine Catheter - Jackson Urine Culture - Final Culture exhibits no growth. Dr. 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 He is living with a host family while he attends the college in [place]. He was brought to the emergency room unresponsive on 10/13/2018 secondary to overdose with an unknown amount of Benadryl and then he placed a tube connecting the exhaust of his vehicle to the interior portion of the automobile. He was in the exhaust fumes for approximately 15 minutes. Carbon oxyhemoglobin was noted to be 3.0 at admission. On presentation to the emergency department he was afebrile and hemodynamically stable. CBC revealed no evidence of leukocytosis. Chemistry profile was unremarkable. Toxicology screen was negative for drugs of abuse. He was emergently intubated at presentation to the emergency room because he was unresponsive and unable to protect his airway. He was transferred to the intensive care unit. He was extubated on 10/14/2016 and on 10/15/2016 was transferred from the intensive care unit to a medical surgical floor with a 24-hour sitter. He initially had a low- grade fever however once he was extubated the fever resolved. Blood and urine culture were negative. White blood cells remained within normal limits. He was seen by the [facility] crisis team and arrangements were made for admission to [facility]. On 10/16/2018 he was afebrile with stable vital signs. Pulse ox on room air ranged from 97- 100%. Denied suicidal ideation. His only complaint was lightheadedness which may be due to visual effects of Benadryl overdose. Transportation was arranged to [place] and the patient was stable for discharge. PHYSICAL EXAM: GENERAL: alert, oriented X 3, Cooperative, NAD ORAL: moist mucosa, no mucosal lesions NECK: No JVD, supple, trachea midline LUNGS: CTA, symmetric chest expansion HEART: RRR, Normal S1 and S2, no rub, no gallop ABDOMEN: soft, NT, ND, BS present, no guarding with palpation EXTREMITIES: no edema, no cyanosis, no calf tenderness SKIN: No rashes, no breakdown NEUROLOGIC: no focal neurologic deficits PSYCH: appropriate, normal affect, pleasant This note was generated with [employer] dictation software. It may contain incorrect words, spelling, and punctuation that were not noted in checking the note before signing. Patient Problems: Active and Suspected Problems (Last Updated 10/13/18 @ 06:25 by Hay Ng MD) Toxic encephalopathy (Acute) Hypokalemia (Acute) Acute respiratory failure with hypoxia (Acute) Suicide attempt (Acute) - Physical Exam Vital Signs Temp Pulse Resp BP Pulse Ox 98.1 F 69 15 119/66 100 10/16/18 09:01 10/16/18 09:01 10/16/18 09:01 10/16/18 09:01 10/16/18 09:01 Oxygen Flow Rate (L/min) 2 Oxygen Delivery Method Room Air Weight: 127 lb 10.362 oz Body Mass Index (BMI) 19.2 Intake and Output for Last 24 Hours 10/14/18 10/15/18 10/16/18 23:59 23:59 23:59 Intake Total 3097 / 3097 925 / 925 690 / 690 Output Total 5550 / 5550 900 / 900 Balance -2453 / -2453 25 / 25 690 / 690 Microbiology Past 72 Hours 10/14/18 07:05 Blood Culture - Preliminary Blood Culture (Wb) - Anticubital Left No growth in 48 hours. 10/14/18 07:15 Blood Culture - Preliminary Blood Culture (Wb) - Anticubital Right No growth in 48 hours. 10/14/18 06:45 Urine Culture - Final Urine Catheter - Jackson Culture exhibits no growth. POC Glucose 10/15/18 20:56 POC Glucose 95 Discharge Activity: - - No activity restrictions Call your doctor if you observe: Fever of 101 or Higher Home Medications: Medications to take at Discharge Citalopram [Celexa] 20 mg PO DAILY 10/13/18 hydrOXYzine pamoate capsule [Vistaril pamoate capsule] 1 - 2 tab PO Q6H PRN PRN 10/13/18 Primary Care Physician: NOT,DEFINED [NON-STAFF] - Disposition: Psych Hospital or Unit Minutes spent on discharge:: 40 Patient Condition:: Stable Medical Necessity - Tobacco Use Smoking Status: Never smoker Tobacco Use: Non-smoker Meaningful Use Info Meaningful Use Diagnoses (Choose all that apply): None applicable Code Visit Inpatient E&M: 75310 Disch Hosp
[2018-10-16 12:15] VITALS: BP 105/57; PULSE 78; RESP 16; TEMP 36.8; O2SAT 100
--- NOTE | 2018-10-16 12:46 | CHAPLAIN ---
Type of Pastoral Visit ___ Initial Visit _x__ Follow-up Visit ___ On-call Visit ___ General Patient Visit ___ Spiritual Assessment ___ Family Conference ___ Bereavement ___ Rapid Response ___ Code Blue ___ Other (describe below) Pastoral Care Referral From _x__ Patient ___ Family ___ Nurse ___ Physician ___ [employer] ___ Size Mixer ___ Other (describe below) Sacrament/Intervention _x__ Active listening ___ Anointing ___ Jehovah'S Witness ___ Bereavement ___ Communion ___ Ale exploration ___ ___ Life review ___ Prayer ___ Reconciliation ___ Sacrament of Sick ___ Supportive presence ___ Wedding ___ Other (describe below) Pastoral Comments patient is soon to be discharged for placement
== END 2018-10-16 12:55 | DRG 917 ==
LOC: ED 04:07 → ICU 06:31 → MS3 10-16 07:22 → ICU 10-16 08:35
PROVIDERS: Internal Medicine; Internal Medicine Critical Care Medicine; Admitting Provider Hospitalist; Emergency Provider Emergency Medicine; Visit Provider Internal Medicine
DX: T45.0X2A Poisoning by antiallergic and antiemetic drugs, intentional self-harm, initial encounter (principal); G92 Toxic encephalopathy; J96.01 Acute respiratory failure with hypoxia; E87.6 Hypokalemia; F41.9 Anxiety disorder, unspecified; F32.9 Major depressive disorder, single episode, unspecified
CPT/HCPCS: 31500; 36600; 71045; 74018; 80048; 80053; 80307; 80329; 82375; 82550; 82803; 82962; 83735; 84478; 85025; 85027; 87040; 87086; 93005; 94002; 94003; 94660; 95831; 97161; 97166; 97530; 97802; 99251; 99285; J7030; J7050; J7120; A4216; G0463; G0480; J0295; J0330